=== PATIENT | male | born 1950 ===

== ENCOUNTER 2021-09-10 07:56 | Outpatient (REF) | payer OTHER, SELFPAY ==
--- NOTE | ~2021-09-10 | XR_ITS ---
EXAMINATION: XR PELVIS CLINICAL INFORMATION: Hip pain. COMPARISON: None TECHNIQUE: AP view of the pelvis. FINDINGS: There is mild reduction in the right hip joint space with mild subchondral cystic changes and periarticular spurring. No loose bodies seen. No visible fracture or dislocation. The left hip joint space is normal. Rest of the pelvis is unremarkable. XR/XR pelvis 1-2V IMPRESSION: Moderate degenerative changes right hip joint without any visible acute fracture, dislocation or loose bodies. Unremarkable left hip and AP pelvis exam.
== END 2021-09-10 07:57 | disposition home or self-care (01) ==
LOC: HO.HOSX 07:56
PROVIDERS: Visit Provider Orthopaedic Surgery
DX: M16.11 Unilateral primary osteoarthritis, right hip (principal)
CPT/HCPCS: 72170